=== PATIENT | male | born 1960 | race Caucasian/White ===

== ENCOUNTER 2019-10-25 23:33 | Inpatient (IN) | payer OTHER ==
[~2019-10-25] VITALS: Ht 175.3 cm; Wt 86.2 kg
[2019-10-26 00:03] LABS: BASOPHILS ABSOLUTE AUTO 0.02 K/mm3 (0.00-0.23); BASOPHILS PERCENT AUTO 0 % (0-2); EOSINOPHILS ABSOLUTE AUTO 0.13 K/mm3 (0.00-0.68); EOSINOPHILS PERCENT AUTO 3 % (0-6); Hematocrit 45.6 % (37.0-53.0); Hemoglobin 16.4 g/dL (13.5-17.5); IMMATURE GRAN ABSOLUTE AUTO 0.01 K/mm3 (0.00-0.10); IMMATURE GRAN PERCENT AUTO 0 % (0-1); LYMPHOCYTES ABSOLUTE AUTO 1.91 K/mm3 (0.84-5.20); LYMPHOCYTES PERCENT AUTO 36 % (21-46); MONOCYTES ABSOLUTE AUTO 0.78 K/mm3 (0.16-1.47); MONOCYTES PERCENT AUTO 15 % (4-13); Mean Corpuscular HGB 34.2 pg (26.0-34.0); Mean Corpuscular Volume 95 fL (80-100); Mean Platelet Volume 9.1 fL (9.1-12.4); NEUTROPHILS ABSOLUTE AUTO 2.44 K/mm3 (1.96-9.15); NEUTROPHILS PERCENT AUTO 46 % (41-73); Platelet Count 166 K/mm3 (150-400); RDW Coefficient Variation 12.1 % (11.7-14.2); RDW Standard Deviation 42.5 fL (35.1-46.3); Red Blood Cell Count 4.79 M/mm3 (4.30-5.90); White Blood Cell Count 5.29 K/mm3 (4.00-11.30)
[2019-10-26 00:24] LABS: Alanine Aminotransfer (ALT/SGP 28 U/L (12-78); Albumin, Blood 3.9 g/dL (3.4-5.0); Albumin/Globulin Ratio 1.1 (0.8-1.8); Alk Phos 74 U/L (50-136); Anion Gap 5 mmol/L (6-16); Aspartate Aminotrans (AST/SGOT 20 U/L (12-37); Bilirubin, Total 0.6 mg/dL (0.1-1.0); Blood Urea Nitrogen 21 mg/dL (8-24); Bun/Creatinine Ratio 24.7 (12.0-20.0); CO2, Blood 30 mmol/L (21-32); Calcium, Blood 9.1 mg/dL (8.5-10.1); Chloride, Blood 104 mmol/L (98-108); Creatinine, Blood 0.85 mg/dL (0.60-1.20); Globulin, Blood 3.5 g/dL (2.2-4.0); Glomerular Filtration Rate >60 (60-); Glucose, Blood 147 mg/dL (70-99); Potassium, Blood 3.3 mmol/L (3.5-5.5); Sodium, Blood 139 mmol/L (136-145); Total Protein, Blood 7.4 g/dL (6.4-8.2); Troponin I 0.155 ng/mL (0.000-0.040)
[2019-10-26] MEDS ORDERED: ATOR80 PO (00:54)
[2019-10-26] MEDS ORDERED: HYDCHL25 PO (00:54)
[2019-10-26 06:30] LABS: BASOPHILS ABSOLUTE AUTO 0.03 K/mm3 (0.00-0.23); BASOPHILS PERCENT AUTO 1 % (0-2); EOSINOPHILS ABSOLUTE AUTO 0.16 K/mm3 (0.00-0.68); EOSINOPHILS PERCENT AUTO 3 % (0-6); Hematocrit 42.7 % (37.0-53.0); Hemoglobin 15.2 g/dL (13.5-17.5); IMMATURE GRAN PERCENT AUTO 0 % (0-1); LYMPHOCYTES ABSOLUTE AUTO 2.18 K/mm3 (0.84-5.20); LYMPHOCYTES PERCENT AUTO 43 % (21-46); MONOCYTES ABSOLUTE AUTO 0.81 K/mm3 (0.16-1.47); MONOCYTES PERCENT AUTO 16 % (4-13); Mean Corpuscular HGB Conc 35.6 g/dL (31.5-36.5); Mean Corpuscular Volume 96 fL (80-100); Mean Platelet Volume 9.1 fL (9.1-12.4); NEUTROPHILS ABSOLUTE AUTO 1.88 K/mm3 (1.96-9.15); NEUTROPHILS PERCENT AUTO 37 % (41-73); Platelet Count 144 K/mm3 (150-400); RDW Coefficient Variation 12.3 % (11.7-14.2); Red Blood Cell Count 4.47 M/mm3 (4.30-5.90); White Blood Cell Count 5.06 K/mm3 (4.00-11.30)
[2019-10-26 06:45] LABS: Anion Gap 5 mmol/L (6-16); Blood Urea Nitrogen 20 mg/dL (8-24); Bun/Creatinine Ratio 26.4 (12.0-20.0); CO2, Blood 28 mmol/L (21-32); Calcium, Blood 8.6 mg/dL (8.5-10.1); Chloride, Blood 108 mmol/L (98-108); Creatinine, Blood 0.76 mg/dL (0.60-1.20); Glomerular Filtration Rate >60 (60-); Glucose, Blood 117 mg/dL (70-99); Potassium, Blood 3.7 mmol/L (3.5-5.5); Sodium, Blood 141 mmol/L (136-145)
[2019-10-26 06:56] LABS: Creatine Kinase MB 3.4 ng/mL (0.0-3.6); Creatine Kinase MB Index 2.9 (0.0-4.0); Troponin I 0.492 ng/mL (0.000-0.040)
[2019-10-26 07:29] LABS: Prothrombin Time Results 11.7 Sec (9.7-11.5)
--- NOTE | 2019-10-26 14:57 | NUR ---
RECEIVED PATIENTF FROM COLLECTIONS OFFICER, VIA HOSPITAL BED.
--- NOTE | 2019-10-26 16:57 | NUR ---
LATE ENTRY 1540: PT WITH 4/10 MIDSTERNAL CHEST PAIN, POSTERIOR NECK PAIN, PT MEDICATED WITH 1 NTG SL. 1545: PT SATES CHEST PAIN DECREASED TO 3/10, B/P 127/83, MEDICATED WITH 1 NTG SL. 1550: PT C/O NAUSEA, NO CHANGE IN CHEST PAIN, STATES PAIN IS INBETWEEN SHOULDER BLADES. B/P 88/46, PT C/O NAUSEA, HOT FLUSH, HOB FLATTENED, PT MEDICATED WITH TIGRE 4MG IV. 1600: B/P 93/50, NAUSEA RESOLVED, PT REPORTS 2/10 CHEST PAIN.
--- NOTE | 2019-10-26 17:41 | NUR ---
LATE ENTRY RIGHT WRIST ASSESSMENT: 1500 - FLAT, WARM, SOFT, NONTENDER, +URBAN DESIGN CONSULTANT TO RIGHT HAND AND FINGERS. 1515 - FLAT, WARM, SOFT, NONTENDER, +CMS TO RIGHT HAND AND FINGERS 1530 - WARM, SOFT, NONTENDER, +CMS TO RIGHT HAND AND FINGERS 1540 - WARM, SOFT, +CMS TO RIGHT HAND AND FINGERS 1600 - WARM, SOFT, FAINT DISCOLORATION 1645 - WARM, FAINT DISCOLORATION, +CMS TO RIGHT HAND AND FINGERS 1700 - WARM, FAINT DISCOLORATION, +CMS TO RIGHT HAND AND FINGERS.
--- NOTE | 2019-10-26 17:55 | NUR ---
PT HAD RIGHT RADIAL ANGIOGRAM, RECEIVED FROM [facility] [place] AT 1500. NO COMPLICATIONS WITH RADIAL SITE, PT HAD UNRELIEVED CHEST PAIN, MEDICATED WITH NTG SL X2, MORPHINE 2MG, WITH NO RELIEF OF 2-3/10 CHEST PAIN. PT MEDICATED WITH ZOFRAN FOR NAUSEA AFTER NITROGLYCERIN, TYLENOL 650MG FOR PERSISTANT POSTERIOR NECK AND UPPER BEHIND THE SHOULDER BLADES PAIN. 12 LEAD EKG INTERPRETED ACTIVE MD CARL AWARE, PT TRANSFERRED TO PLANT HR MANAGER @ 1550 VIA [facility], WITH 2 RN ASSIST. DAUGHTER WITH PATIENT.
--- NOTE | 2019-10-26 18:02 | NUR ---
LATE ENTRY: 1641 - PT MEDICATED WITH TYLENOL FOR 3/10 POSTERIOR NECK PAIN. 1715: PT STATES NO RELIEF OF PAIN NOTED.
--- NOTE | 2019-10-26 18:09 | NUR ---
LATE ENTRY CLARIFICATION 1554 - PT MEDICATED WITH TYLENOL 650MG PO FOR 3/10 POSTERIOR NECK PAIN, WITH NO RELIEF NOTED. 16:41 - PT MEDICATED WITH MORPHINE 2MG IV FOR C/O 3/10 CHEST PAIN WITH NO RELIEF NOTED.
--- NOTE | 2019-10-26 21:00 | NUR ---
PT ARRIVED FROM [facility] TO ICU-14 AT 2014. PT W BILAT TR BANDS INFLATED & ARM BOARD IN PLACE BILAT. R WRIST W HEMATOMA, REVIEWED W Salma MÁRQUEZ, RN & SEEMS TO BE SL IMPROVED. PT STATES HAS ALWAYS HAD SOME COOLNESS OF R HAND, SAME NOW, DENIES TINGLING OR NUMBNESS. NTG GTT AT 10MCG/MIN, PT DENIES CHEST PAIN, THIS IS DISCONTINUED AT THIS TIME. VSS, MONITOR SHOWS SR. PT & DAUGHTERS WERE UPDATED BY DR MALAVE.
--- NOTE | 2019-10-27 01:30 | NUR ---
TR BAND ON R DEFLATING WO BLEEDING, WILL CONT TO MONITOR UNTIL COMPLETE. RADIAL BLEEDING AFTER INITIAL DEFLATION ATTEMPT. RETURNED & WILL CONT TO ASSESS & DEFLATE POSSIBLE. HAS SAT AT BEDSIDE TO VOID WO DIFF. PT DAUGHTER STAYING BEDSIDE TO ASSIST PT. QUESTIONS ANSWERED.
--- NOTE | 2019-10-27 03:00 | NUR ---
PT DAUGHTER REPORTED THAT PT CO CHEST PAIN. PT APPEARS W OBVIOUS DISTRESS, BUT RATES DISCOMFORT ON LOW SCALE. PT BP NOTED 150'S SYSTOLIC, NO ST CHANGES. NTG GTT WAS IMMED RESTARTED AT 15MCG/MIN. PT WAS THEN GIVEN MORPHINE 2 MG, AND THEN HAD EMESIS OF 250CC. NAUSEA WAS THEN RESOLVED. PT THEN CO HEADACHE & WAS MED W TYLENOL. NTG CONT AT 20MCG/MIN. VS CONT STABLE. CONTINUING TO DEFLATE R & L TR BAND, NO BLEEDING.
--- NOTE | 2019-10-27 06:15 | NUR ---
DR MALAVE UPDATED W PT STATUS, THAT PT CONT ON NTG GTT, THAT HE HAD CHEST PAIN DURING NOC & EMESIS. CONFIRMED RESTART TIME FOR HEPARIN GTT RESUMING, NOON IF SITES CONT STABLE. TR BANDS BILAT COMPLETELY DEFLATED, & WILL DRESS SITES, SHORTLY.
--- NOTE | 2019-10-27 06:40 | NUR ---
BILAT WRIST TR BAND SITES DRESSED W CLEAR OCCLUSIVE DRSGS & ARM BOARDS REPLACED. PT STATES COMPLETELY CHEST PAIN FREE, CONT ON NTG GTT AT 20MCG/MIN. SAT AT BEDSIDE TO VOID MANUEL URINE. PT DAUGHTER AT BEDSIDE.
--- NOTE | 2019-10-27 08:00 | NUR ---
INITIAL ASSESSMENT PATIENT ALERT AND ORIENTED X 4, AFEBRILE. PATIENT REPOSITIONING SELF IN BED. DAUGHTER AT BEDSIDE. PATIENT GIVEN PRN TYLENOL FOR COMPLAINT OF HEADACHE. PATIENT SATTING 90% AND GREATER ON RA. LUNGS CLEAR IN UPPER LOBES AND DIMINISHED IN LOWER LOBES. PATIENT IN SR. PATIENT HAD A FEW SHORT RUNS OF VTACH ON LOOP PULLER. PATIENT STATES HE CAN FEEL PALPITATIONS WHEN THEY HAPPEN. PATIENT DENIES CP AT THIS TIME. PULSES STRONG. HR IN THE 60S. BP STABLE. PATIENT GIVEN PRN ZOFRAN FOR COMPLAINTS OF NAUSEA THIS AM. ABDOMEN SOFT, NONDISTENDED, NONTENDER, WITH HYPOACTIVE BS NOTED. LAST BM 2 DAYS AGO. PATIENT VOIDING DARK YELLOW COLORED URINE INTO BEDSIDE URINAL. R AND L RADIAL PUNCTURE SITES NOTED FROM [employer] SALESPERSON ACCESS; NO TR BAND IN PLACE; ARMBOARDS IN PLACE. NO BLEEDING OR HEMATOMA NOTED TO EITHER SITE. SMALL BRUISE NOTED TO R RADIAL SITE. NITRO INFUSING AT 20 MCG/ MINUTE AND NS AT 100 MLS/ HOUR. BED LOW, CALL LIGHT IN REACH. WILL CONTINUE TO MONITOR PATIENT FREQUENTLY THROUGHOUT SHIFT.
--- NOTE | 2019-10-27 08:05 | NUR ---
DR. CLEMENT UPDATED ON PATIENT STATUS. INFORMED THAT PATIENT COMPLAINING OF NAUSEA AND HEADACHE THIS MORNING AND THAT PRN ZOFRAN AND TYLENOL GIVEN. INFORMED THAT NITRO DRIP INFUSING AT 20 MCG/ MINUTE. ORDER TO DC. PATIENT DOES HAVE PRN MORHPINE AND NITRO SL. INFORMED DR. CLEMENT THAT HEPARIN TO BEGIN AGAIN AT 1200. INFORMED THAT NS INFUSING AT 100 MLS/ HOUR. INFORMED THAT PATIENT MOSTLY SR WITH A FEW 4 BEAT RUNS OF VTACH DURING AIRCONDITIONING DRAFTING OFFICER PER RN REPORT. ORDERS RECEIVED.
--- NOTE | 2019-10-27 08:55 | NUR ---
DR. SMITH HERE TO SEE PATIENT. INFORMED THAT PATIENT HAVING SHORT RUNS OF VTACH OFF AND ON. INFORMED THAT NITRO DRIP DC'D AND THAT PATIENT CONTINUES TO HAVE PRN NITRO SL AND MORPHINE ON EMAR. INFORMED THAT PATIENT INQUIRING ABOUT STARTING HOME MEDICATION, HYDROCHOLORTHIAZIDE, AGAIN, WHICH HE TAKES FOR KIDNEY STONES. STATED THAT WE WILL BEGIN METOPROLOL TARTRATE AND IMDUR AND WAIT TO BEGIN HOME HYDROCHOLORTHIAZIDE FOR NOW. INQUIRED ABOUT HEPARIN DRIP TO BEGIN SOMETIME TODAY. INFORMED THAT L TR BAND BLED WHEN NIGHT NURSE TRIED TO DEFLATE BUT THAT BOTH TR BANDS OFF WHEN DAY SHIFT CAME ON. STATED TO START HEPARIN DRIP AT 1300 AND CALL HER AT 2100 FOR PATIENT UPDATE.
--- NOTE | 2019-10-27 12:45 | NUR ---
PATIENT RESTING QUIETLY IN BED, VISITING WITH FAMILY. PATIENT AFEBRILE. PATIENT DENIES ANY PAIN OR NAUSEA. PATIENT IN SB TO SR, HR 50S TO 70S. BP STABLE. NO ACUTE CHANGES TO NOTE ON. WILL CONTINUE TO MONITOR.
--- NOTE | 2019-10-27 16:10 | NUR ---
PATIENT RESTING QUIELTY. NO COMPLAINTS. NO CP OR NAUSEA. HEPARIN INFUSING AT 13 UNITS/ KG/ HOUR. NO ACUTE CHANGES TO NOTE ON. WILL CONTINUE TO MONITOR.
--- NOTE | 2019-10-27 18:15 | NUR ---
SHIFT SUMMARY PATIENT REMAINED ALERT AND ORIENTED X 4, AFEBRILE. PATIENT HAD 1 COMPLAINT OF HEADACHE THAT WAS RELIEVED WITH PRN TYLENOL. PATIENT HAD 1 COMPLAINT OF VERY MILD CP THIS AM AFTER NITRO DRIP DC'D. CP RELIEVED SHORT TIME AFTER PO IMDUR GIVEN. PATIENT INDEPENDENT IN BED. PATIENT SATTED 90% AND GREATER ON RA. PATIENT REMAINED IN SR TO SB WITH OCCASIONAL SHORT RUNS OF VTACH. HR 50S TO 70S. BP STABLE. PULSES REMAIN STRONG. PATIENT GIVEN PRN ANTIEMETIC X 2 FOR COMPLAINT OF NAUSEA. PATIENT DID NOT EAT MUCH ALL DAY UNTIL DINNER. NO BM THIS SHIFT. PATIENT HAD ADEQUATE URINE OUTPUT; URINE DARK YELLOW IN COLOR. R RADIAL SITE AND L RADIAL SITE REMAIN STABLE; NO BLEEDING OR HEMATOMA NOTED. R RADIAL SITE IS BRUISED. BILAT ARMBOARDS REMAIN IN PLACE. HEPARIN INFUSING AT 13 UNITS/ KG/ HOUR. BED LOW, CALL LIGHT IN REACH. PATIENT HAS NO COMPLAINTS AT THIS TIME. FAMILY AT BEDSIDE. REPORT WILL BE GIVEN TO ONCOMING JAVA XML DEVELOPER NURSE SHORTLY.
[2019-10-27] MEDS ORDERED: SULF500 PO (20:24)
--- NOTE | 2019-10-27 20:58 | NUR ---
UPDATED DR. SMITH ON PT'S CONDITION, UPDATED MED LIST, CURRENT STABLE BLOOD PRESSURE RESPONSE TO METOPROLOL, AND PT'S LACK OF CHEST PAIN. ORDERS RECEIVED TO CONTINUE HEPARIN GTT UNTIL 0600, WHEN IT CAN BE DISCONTINUED.
--- NOTE | 2019-10-28 06:01 | NUR ---
PT SLEPT MOST OF THE NIGHT. PT STATED DESIRE TO GET OUT OF BED AND MOVE AROUND. HOWEVER, WHEN OFFERED, PT DECLINED, SAYING HE WISHED TO SLEEP FIRST. PT STATES GOAL TODAY IS TO GET UP TO EAT INTO CHAIR, THEN GO FOR WALK. PT CONTINUES TO DENY CHEST PAIN. HEPARIN GTT TURNED OFF AT 0545.
[2019-10-28 10:13] LABS: Anion Gap 4 mmol/L (6-16); Blood Urea Nitrogen 12 mg/dL (8-24); Bun/Creatinine Ratio 19.4 (12.0-20.0); CO2, Blood 26 mmol/L (21-32); Calcium, Blood 8.5 mg/dL (8.5-10.1); Chloride, Blood 109 mmol/L (98-108); Creatinine, Blood 0.62 mg/dL (0.60-1.20); Glomerular Filtration Rate >60 (60-); Glucose, Blood 150 mg/dL (70-99); Potassium, Blood 3.4 mmol/L (3.5-5.5); Sodium, Blood 139 mmol/L (136-145)
--- NOTE | 2019-10-28 18:30 | NUR ---
THIS A&OX4 PT HAS DECLINED ANY CHEST PAIN TODAY. PT CONTINUES IN SINUS RHYTHM. TODAY PT WAS ABLE TO AMBULATE GREATER THAN 400 FEET WITH NO CHEST PAIN, DIZZINESS, SOB AND NO RHYTHM CHANGES NOTED ON TELEMETRY DURING AMBULATION. PT HAS C/O OF SLIGHT ALLRED TODAY, WITH MINIMAL IMPROVEMENT AFTER PRN TYLENOL. VITALS HAVE REMAINED STABLE. PT REPORT THAT HE'S HAD NO BOWEL MOVEMENT FOR MULTIPLE DAYS. SENNA WAS STARTED TODAY BY AND PT WAS ABLE TO HAVE A BM.
--- NOTE | 2019-10-28 20:15 | NUR ---
CARE ASSUMPTION PT PCU STATUS. A&O X4. MONITOR SHOWS NSR, HR 60's. SPO2 > 92% ON RA. VSS. PT REPORTS LINGERING MILD HEADACHE. DENIES CP. L RADIAL & R RADIAL ACCESS SITES WNL W/ NO BLEEDING & NO HEMATOMA. FAMILY AT BEDSIDE. WILL CONTINUE TO MONITOR AND PROVIDE CARE.
[2019-10-29 03:56] LABS: Hematocrit 39.6 % (37.0-53.0); Hemoglobin 13.9 g/dL (13.5-17.5); Mean Corpuscular HGB 34.2 pg (26.0-34.0); Mean Corpuscular HGB Conc 35.1 g/dL (31.5-36.5); Mean Corpuscular Volume 98 fL (80-100); Mean Platelet Volume 9.5 fL (9.1-12.4); Platelet Count 117 K/mm3 (150-400); RDW Coefficient Variation 12.7 % (11.7-14.2); RDW Standard Deviation 45.6 fL (35.1-46.3); Red Blood Cell Count 4.06 M/mm3 (4.30-5.90); White Blood Cell Count 6.67 K/mm3 (4.00-11.30)
[2019-10-29 04:12] LABS: Anion Gap 5 mmol/L (6-16); Blood Urea Nitrogen 13 mg/dL (8-24); Bun/Creatinine Ratio 16.5 (12.0-20.0); CO2, Blood 24 mmol/L (21-32); Calcium, Blood 8.6 mg/dL (8.5-10.1); Chloride, Blood 112 mmol/L (98-108); Creatinine, Blood 0.79 mg/dL (0.60-1.20); Glomerular Filtration Rate >60 (60-); Glucose, Blood 84 mg/dL (70-99); Potassium, Blood 4.2 mmol/L (3.5-5.5); Sodium, Blood 141 mmol/L (136-145)
--- NOTE | 2019-10-29 05:10 | NUR ---
SHIFT SUMMARY PT CONTINUES TO BE A&O X4. PCU STATUS. VSS. NO EVENTS OVERNIGHT. MONITOR SHOWS NSR, HR 60's. SPO2 > 92% ON RA. L RADIAL & R RADIAL ACCESS SITES WNL W/ NO BLEEDING & NO HEMATOMA. PT DENIES CP THIS SHIFT. WILL CONTINUE TO MONITOR AND PROVIDE CARE UNTIL REPORT OFF TO DAY SHIFT RN.
--- NOTE | 2019-10-29 08:44 | NUR ---
BEGINNING OF SHIFT Assumed care at 0700. Bedside report recevied from Marily ZAPATA. Pt on room air. SR per monitor. Denies chest pain or shortness of breath. Pt states goal to go home today. Bilateral tranradial sites. Dressed with tegaderm. No bruising, hematoma noted. Color, sensation, pulses, capillary refill equal BUE.
--- NOTE | 2019-10-29 09:58 | NUR ---
DR ROBLEDO AND DR COHEN IN ROOM Plans for pt to discharge home today. Pt ambulating at this time.
[2019-10-29] MEDS ORDERED: ASPI81CH PO (10:38)
[2019-10-29] MEDS ORDERED: CLOP75 PO (10:39)
[2019-10-29] MEDS ORDERED: METO25 PO (10:40)
[2019-10-29] MEDS ORDERED: Prinivil10 MG PO (10:40)
[2019-10-29] MEDS ORDERED: NITR.4SL SL (10:41)
[2019-10-29] MEDS ORDERED: Isosorbide Mono30 MG PO (10:58)
--- NOTE | 2019-10-29 11:45 | NUR ---
DISCHARGE Pt discharged from ICU 14 at 1130 via wheelchair accompanied by family and this RN. Discharge education given to pt and family, who verbalized understanding. Follow up appointment with PCP and cardiology arranged by this RN. New medicatios faxed to [facility] pharmacy per pt request. This RN clairified lisinopril order with Dr Villanueva as it was previously ordered PRN. Medication to be given daily. [facility] pharmacy updated with new medication order.
== END 2019-10-29 11:30 | disposition home or self-care (01) | DRG 247 ==
LOC: ER 23:33 → ICUW 10-26 03:03 → ERHOLD 10-26 03:03 → ICUW 10-26 11:05 → PCU 10-26 14:55 → ICUW 10-26 19:02
PROVIDERS: Internal Medicine Interventional Cardiology; Physician Assistant; ADMIT Internal Medicine
PROC: 4A023N7 Measurement of Cardiac Sampling and Pressure, Left Heart, Percutaneous Approach (ICD-10-PCS; principal; 2019-10-26)
PROC: 027034Z Dilation of Coronary Artery, One Artery with Drug-eluting Intraluminal Device, Percutaneous Approach (ICD-10-PCS; 2019-10-26)
PROC: B210YZZ Fluoroscopy of Single Coronary Artery using Other Contrast (ICD-10-PCS; 2019-10-26)
DX: I21.4 Non-ST elevation (NSTEMI) myocardial infarction (principal); I10 Essential (primary) hypertension; E78.5 Hyperlipidemia, unspecified; I25.10 Atherosclerotic heart disease of native coronary artery without angina pectoris; E87.6 Hypokalemia
CPT/HCPCS: 36415; 71046; 76937; 80048; 80053; 82550; 82553; 84484; 85025; 85027; 85347; 85610; 85730; 92920; 92921; 92978; 93005; 93010; 93306; 93454; 93458; 96374; 99152; 99153; 99285-25; A9270; A9270-GY; C1725; C1753; C1769; C1874; C1887; C1894; C9600; J1644; J2250; J2270; J2405; J2550; J3010; J3246; J7030; J7040; Q9967

== ENCOUNTER 2020-06-18 01:31 | Emergency (ER) | payer OTHER ==
[~2020-06-18] VITALS: Ht 175.3 cm; Wt 83.9 kg
[~2020-06-18 01:31] MED LIST: AMLO5 PO; ASPI81CH PO; ATOR80 PO; CLOP75 PO; HYDCHL25 PO; Isosorbide Mono30 MG PO; LOSA25 PO; METO25 PO; NITR.4SL SL; Prinivil10 MG PO; SULF500 PO
[2020-06-18] MEDS ORDERED: CIPR500 (01:47)
[2020-06-18] MEDS ORDERED: METR500 (01:47)
[2020-06-18] MEDS ORDERED: TOPROL XL25 MG PO (01:47)
[2020-06-18 02:17] LABS: Alanine Aminotransfer (ALT/SGP 19 U/L (12-78); Albumin, Blood 3.6 g/dL (3.4-5.0); Alk Phos 92 U/L (50-136); Anion Gap 7 mmol/L (6-16); Aspartate Aminotrans (AST/SGOT 20 U/L (12-37); Bilirubin, Total 1.6 mg/dL (0.1-1.0); Blood Urea Nitrogen 17 mg/dL (8-24); Bun/Creatinine Ratio 18.2 (12.0-20.0); CO2, Blood 24 mmol/L (21-32); Calcium, Blood 8.9 mg/dL (8.5-10.1); Chloride, Blood 107 mmol/L (98-108); Creatinine, Blood 0.93 mg/dL (0.60-1.20); Globulin, Blood 3.6 g/dL (2.2-4.0); Glomerular Filtration Rate >60 (60-); Glucose, Blood 101 mg/dL (70-99); Potassium, Blood 3.7 mmol/L (3.5-5.5); Sodium, Blood 138 mmol/L (136-145); Total Protein, Blood 7.2 g/dL (6.4-8.2)
[2020-06-18 02:19] LABS: BASOPHILS ABSOLUTE AUTO 0.02 K/mm3 (0.00-0.23); BASOPHILS PERCENT AUTO 0 % (0-2); EOSINOPHILS ABSOLUTE AUTO 0.08 K/mm3 (0.00-0.68); EOSINOPHILS PERCENT AUTO 1 % (0-6); Hematocrit 43.8 % (37.0-53.0); Hemoglobin 15.6 g/dL (13.5-17.5); IMMATURE GRAN ABSOLUTE AUTO 0.03 K/mm3 (0.00-0.10); IMMATURE GRAN PERCENT AUTO 1 % (0-1); LYMPHOCYTES ABSOLUTE AUTO 1.74 K/mm3 (0.84-5.20); LYMPHOCYTES PERCENT AUTO 28 % (21-46); MONOCYTES ABSOLUTE AUTO 0.82 K/mm3 (0.16-1.47); MONOCYTES PERCENT AUTO 13 % (4-13); Mean Corpuscular HGB 34.2 pg (26.0-34.0); Mean Corpuscular HGB Conc 35.6 g/dL (31.5-36.5); Mean Corpuscular Volume 96 fL (80-100); Mean Platelet Volume 9.1 fL (9.1-12.4); NEUTROPHILS ABSOLUTE AUTO 3.62 K/mm3 (1.96-9.15); NEUTROPHILS PERCENT AUTO 57 % (41-73); Platelet Count 133 K/mm3 (150-400); RDW Coefficient Variation 12.3 % (11.7-14.2); RDW Standard Deviation 43.4 fL (35.1-46.3); Red Blood Cell Count 4.56 M/mm3 (4.30-5.90); White Blood Cell Count 6.31 K/mm3 (4.00-11.30)
[2020-06-18] MEDS ORDERED: DOC250 PO (03:36)
== END 2020-06-18 03:45 | disposition home or self-care (01) ==
LOC: ER 01:31
PROVIDERS: Emergency Medicine
DX: K57.32 Diverticulitis of large intestine without perforation or abscess without bleeding (principal); I10 Essential (primary) hypertension; I25.2 Old myocardial infarction; E78.5 Hyperlipidemia, unspecified; Z79.02 Long term (current) use of antithrombotics/antiplatelets; Z79.82 Long term (current) use of aspirin; Z79.899 Other long term (current) drug therapy; Z87.442 Personal history of urinary calculi; Z95.5 Presence of coronary angioplasty implant and graft
CPT/HCPCS: 36415; 74177; 80053; 83690; 85025; 96361; 96374-59; 96375; 99284-25; J1170; J2405; J7030; Q9967

== ENCOUNTER 2020-08-05 13:18 | Emergency (ER) | payer OTHER ==
[~2020-08-05] VITALS: Ht 175.3 cm; Wt 83.9 kg
[~2020-08-05 13:18] MED LIST changes: +CIPR500; +DOC250 PO; +METR500; +TOPROL XL25 MG PO
[2020-08-05 14:18] LABS: BASOPHILS ABSOLUTE AUTO 0.02 K/mm3 (0.00-0.23); BASOPHILS PERCENT AUTO 0 % (0-2); EOSINOPHILS ABSOLUTE AUTO 0.09 K/mm3 (0.00-0.68); EOSINOPHILS PERCENT AUTO 2 % (0-6); Hematocrit 44.4 % (37.0-53.0); Hemoglobin 15.4 g/dL (13.5-17.5); IMMATURE GRAN ABSOLUTE AUTO 0.01 K/mm3 (0.00-0.10); IMMATURE GRAN PERCENT AUTO 0 % (0-1); LYMPHOCYTES ABSOLUTE AUTO 1.25 K/mm3 (0.84-5.20); LYMPHOCYTES PERCENT AUTO 27 % (21-46); MONOCYTES ABSOLUTE AUTO 0.58 K/mm3 (0.16-1.47); MONOCYTES PERCENT AUTO 13 % (4-13); Mean Corpuscular HGB 33.6 pg (26.0-34.0); Mean Corpuscular HGB Conc 34.7 g/dL (31.5-36.5); Mean Corpuscular Volume 97 fL (80-100); Mean Platelet Volume 9.2 fL (9.1-12.4); NEUTROPHILS ABSOLUTE AUTO 2.63 K/mm3 (1.96-9.15); NEUTROPHILS PERCENT AUTO 57 % (41-73); Platelet Count 140 K/mm3 (150-400); RDW Coefficient Variation 12.5 % (11.7-14.2); RDW Standard Deviation 44.1 fL (35.1-46.3); Red Blood Cell Count 4.59 M/mm3 (4.30-5.90); White Blood Cell Count 4.58 K/mm3 (4.00-11.30)
[2020-08-05 14:28] LABS: Alanine Aminotransfer (ALT/SGP 22 U/L (12-78); Albumin, Blood 3.9 g/dL (3.4-5.0); Albumin/Globulin Ratio 1.2 (0.8-1.8); Alk Phos 90 U/L (50-136); Anion Gap 4 mmol/L (6-16); Aspartate Aminotrans (AST/SGOT 17 U/L (12-37); Bilirubin, Total 0.6 mg/dL (0.1-1.0); Blood Urea Nitrogen 19 mg/dL (8-24); Bun/Creatinine Ratio 24.9 (12.0-20.0); CO2, Blood 28 mmol/L (21-32); Calcium, Blood 8.8 mg/dL (8.5-10.1); Chloride, Blood 109 mmol/L (98-108); Creatinine, Blood 0.76 mg/dL (0.60-1.20); Globulin, Blood 3.2 g/dL (2.2-4.0); Glomerular Filtration Rate >60 (60-); Glucose, Blood 110 mg/dL (70-99); Potassium, Blood 3.8 mmol/L (3.5-5.5); Sodium, Blood 141 mmol/L (136-145); Total Protein, Blood 7.1 g/dL (6.4-8.2); Troponin I <0.015 ng/mL (0.000-0.040)
== END 2020-08-05 17:15 | disposition home or self-care (01) ==
LOC: ER 13:18
PROVIDERS: Emergency Medicine
DX: R07.9 Chest pain, unspecified (principal); I10 Essential (primary) hypertension; I25.2 Old myocardial infarction; E78.5 Hyperlipidemia, unspecified; Z95.5 Presence of coronary angioplasty implant and graft; Z79.82 Long term (current) use of aspirin; Z79.02 Long term (current) use of antithrombotics/antiplatelets; Z79.899 Other long term (current) drug therapy
CPT/HCPCS: 36415; 71045; 80053; 83880; 84484; 85025; 93005; 93010; 99285-25

== ENCOUNTER 2020-10-16 07:38 | Day surgery (SDC) | payer OTHER ==
[~2020-10-16] VITALS: Ht 175.3 cm; Wt 84.0 kg
[2020-10-16] MEDS ORDERED: RANO500T PO (08:06)
--- NOTE | 2020-10-16 11:23 | NUR ---
RIGHT RADIAL TR BAND SITE SOFT WITH NO HEMATOMA, NO PULSATILE BLEEDING WITH WRIST BOARD IN PLACE AND CALL LIGHT IN REACH; PT IS DRINKING COFFEE.
--- NOTE | 2020-10-16 13:24 | NUR ---
ATTEMPTED TO RELEASE AIR FROM TR BAND, SITE STARTED BLEEDING AND AIR REPLACED. WILL MONITOR AND ATTEMPT AGAIN IN 30 MINUTES
--- NOTE | 2020-10-16 13:49 | NUR ---
ALL AIR RELEASED FROM TR BAND AT THIS TIME. NO BLEEDING NOTED OR HEMATOMA.
--- NOTE | 2020-10-16 14:24 | NUR ---
PT R RADIAL SITE STABLE. TR BAND REMOVED AND CLOTH DOT PLACED, ARM BOARD PLACED AND INSTRUCTED TO WEAR FOR 2 DAYS. DISCHARGE GONE OVER WITH PT, VERBALIZES UNDERSTANDING. PT TO PRIVATE VEHICLE PER W/C.
== END 2020-10-16 14:20 | disposition home or self-care (01) ==
LOC: MHTC 07:38
DX: R07.89 Other chest pain (principal); I25.10 Atherosclerotic heart disease of native coronary artery without angina pectoris; I10 Essential (primary) hypertension; I25.2 Old myocardial infarction; E78.5 Hyperlipidemia, unspecified; I34.0 Nonrheumatic mitral (valve) insufficiency; R00.2 Palpitations; Z95.5 Presence of coronary angioplasty implant and graft; Z79.02 Long term (current) use of antithrombotics/antiplatelets; Z79.82 Long term (current) use of aspirin; Z82.49 Family history of ischemic heart disease and other diseases of the circulatory system
CPT/HCPCS: 76937; 93005; 93010; 93458; 99152; 99153; C1769; C1894; J1644; J2250; J3010; J7030; J7050; Q9967

== ENCOUNTER 2021-11-06 09:54 | Day surgery (SDC) | payer OTHER ==
[~2021-11-06] VITALS: Ht 175.3 cm; Wt 86.0 kg
[~2021-11-06 09:54] MED LIST changes: +RANO500T PO
--- NOTE | 2021-11-06 12:25 | NUR ---
PT DROWSY, BUT EASILY ROUSABLE AND CONVERSING APPROPRIATELY; DENIES PAIN POST PROCEDURE, VSS, SPO2 94-96% RA. PT'S AT BEDSIDE ATTENTIVE.
--- NOTE | 2021-11-06 13:10 | NUR ---
PT MORE AWAKE AND CONVERSING APPROPRIATELY, CONTINUES TO DENY PAIN. PT DRESSED SELF WITHOUT ISSUE, IV REMOVED-CANNULA INTACT.
--- NOTE | 2021-11-06 13:20 | NUR ---
PT AND RECEIVED DISCHARGE INSTRUCTIONS, MED LIST AND AFTER CARE INSTRUCTIONS; VERBALIZED GOOD UNDERSTANDING. PT LEFT FACILITY VIA W/C, CONDITION STABLE.
== END 2021-11-06 23:53 | disposition home or self-care (01) ==
LOC: MHTC 09:54
DX: R00.2 Palpitations (principal); I25.118 Atherosclerotic heart disease of native coronary artery with other forms of angina pectoris; I82.90 Acute embolism and thrombosis of unspecified vein; I74.3 Embolism and thrombosis of arteries of the lower extremities; I10 Essential (primary) hypertension; E78.5 Hyperlipidemia, unspecified
CPT/HCPCS: 93312; 93325; 99152; 99153; A9270; J2250; J2310; J3010; J7030